=== PATIENT | male | born 1980 | race African-American/Black ===

== ENCOUNTER 2020-09-15 06:26 | Inpatient (IN) | payer MEDICAID, OTHER ==
[~2020-09-15] VITALS: Ht 185.4 cm; Wt 95.3 kg
[2020-09-15] MEDS ORDERED: LORazepam 2 MG/ML VIAL As Ordered ONE (06:30)
[2020-09-15] MEDS ORDERED: diphenhydrAMINE 50MG/ML VIAL (J1200) As Ordered ONE (06:31)
[2020-09-15] MEDS ORDERED: HALOPERIDOL 5MG/ML VIAL (J1630 PER 1) As Ordered ONE (06:31)
[2020-09-15] MEDS ORDERED: HALOPERIDOL 5MG/ML VIAL (J1630 PER 1) IM ONE (06:35)
[2020-09-15] MEDS ORDERED: diphenhydrAMINE 50MG/ML VIAL (J1200) IM ONE (06:35)
[2020-09-15] MEDS ORDERED: LORazepam 2 MG/ML VIAL IM ONE (06:35)
[2020-09-15 07:15] LABS: HEMATOCRIT 50.1 % (42.0-52.0); HEMOGLOBIN 17.4 g/dl (13.5-17.5); MEAN CORPUSCULAR HEMOGLOBIN 30.3 pg (27.0-33.0); MEAN CORPUSCULAR HGB CONC 34.7 g/dl (32.0-36.5); MEAN CORPUSCULAR VOLUME 87.1 fl (80.0-96.0); PLATELET COUNT, AUTOMATED 165 10^3/uL (150-450); RED BLOOD COUNT 5.75 10^6/uL (4.30-6.10); WHITE BLOOD COUNT 12.9 10^3/uL (4.0-10.0)
[2020-09-15 08:01] LABS: ACETAMINOPHEN LEVEL < 2.0 UG/ML (10.0-30.0); ALBUMIN 4.3 GM/DL (3.2-5.2); ALT/SGPT 272 U/L (12-78); BILIRUBIN,DIRECT 3.1 MG/DL (0.0-0.2); BILIRUBIN,TOTAL 5.4 MG/DL (0.2-1.0); BLOOD UREA NITROGEN 17 MG/DL (7-18); CALCIUM LEVEL 9.5 MG/DL (8.5-10.1); CARBON DIOXIDE LEVEL 23 MEQ/L (21-32); CHLORIDE LEVEL 96 MEQ/L (98-107); CREATININE FOR GFR 1.23 MG/DL (0.70-1.30); ETHYL ALCOHOL (ETHANOL) < 0.003 % (0.000-0.010); GLOMERULAR FILTRATION RATE > 60.0 (>60); GLUCOSE, FASTING 141 MG/DL (70-100); POTASSIUM SERUM 4.4 MEQ/L (3.5-5.1); SALICYLATE LEVEL 5.7 MG/DL (5.0-30.0); SODIUM LEVEL 132 MEQ/L (136-145); TOTAL PROTEIN 8.2 GM/DL (6.4-8.2)
[2020-09-15] MEDS ORDERED: QUET50TA3 PO (08:22)
[2020-09-15] MEDS ORDERED: SUCR1TAB56 PO (08:22)
[2020-09-15] MEDS ORDERED: GABA-282 PO (08:22)
[2020-09-15] MEDS ORDERED: QUET400T PO (08:22)
[2020-09-15] MEDS ORDERED: PANT40TA29 PO (08:22)
[2020-09-15] MEDS ORDERED: HYDR-3363 PO (08:22)
[2020-09-15] MEDS ORDERED: LITH300T2 PO (08:22)
[2020-09-15] MEDS ORDERED: METH-1165 PO (08:22)
[2020-09-15] MEDS ORDERED: NICO21DI37 PO (08:22)
[2020-09-15] MEDS ORDERED: VENL75CA47 PO (08:22)
[2020-09-15 10:36] LABS: AMPHETAMINES LEVEL URINE POSITIVE (NEGATIVE); BARBITURATES URINE NEGATIVE (NEGATIVE); BENZODIAZEPINES URINE NEGATIVE (NEGATIVE); CANNABINOIDS URINE NEGATIVE (NEGATIVE); COCAINE METABOLITE URINE NEGATIVE (NEGATIVE); METHADONE URINE NEGATIVE (NEGATIVE); OPIATES URINE NEGATIVE (NEGATIVE); PHENCYCLIDINE URINE NEGATIVE (NEGATIVE)
[2020-09-15 20:14] LABS: LITHIUM LEVEL < 0.20 MEQ/L (0.60-1.20)
[2020-09-15] MEDS ORDERED: QUEtiapine FUMARATE 200 MG TAB PO ONE (20:40)
[2020-09-15] MEDS ORDERED: LITHIUM CARBONATE 300 MG CAP PO ONE (20:40)
[2020-09-15] MEDS ORDERED: VENLAFAXINE 37.5 MG TAB PO ONE (20:40)
[2020-09-15] MEDS ORDERED: GABAPENTIN 300 MG CAP PO ONE (20:40)
[2020-09-15] MEDS ORDERED: VENLAFAXINE **XR** 75MG CAPSULE PO ONE (20:50)
[2020-09-16] MEDS: PANTOPRAZOLE 40MG TAB (PROTONIX) PO SCH (08:57)
[2020-09-16] MEDS: LITHIUM CARBONATE 300 MG CAP PO SCH ×3 (08:57→20:55)
[2020-09-16] MEDS: GABAPENTIN 300 MG CAP PO SCH ×3 (08:57→20:55)
[2020-09-16] MEDS: VENLAFAXINE **XR** 75MG CAPSULE PO SCH ×2 (08:57→20:55)
[2020-09-16] MEDS: methocarbamoL 750 MG TAB PO SCH (08:57)
[2020-09-16] MEDS: NICOTINE 21MG/24HR 1 EA TRANSDERMAL TD SCH (09:00)
[2020-09-16] MEDS ORDERED: VENLAFAXINE 37.5 MG TAB PO SCH (09:00)
[2020-09-16] MEDS: SUCRALFATE 1 GM TAB PO SCH ×3 (12:08→20:55)
[2020-09-16] MEDS ORDERED: hydrOXYzine 25 MG TAB PO STA (15:55)
[2020-09-16 16:02] LABS: RSV AMPLIFICATION NEGATIVE (NEGATIVE)
[2020-09-16] MEDS ORDERED: QUEtiapine FUMARATE 200 MG TAB PO SCH (21:00)
[2020-09-17] MEDS: LITHIUM CARBONATE 300 MG CAP PO SCH ×3 (08:07→20:25)
[2020-09-17] MEDS: VENLAFAXINE **XR** 75MG CAPSULE PO SCH ×2 (08:07→20:25)
[2020-09-17] MEDS: GABAPENTIN 300 MG CAP PO SCH ×3 (08:07→20:25)
[2020-09-17] MEDS: SUCRALFATE 1 GM TAB PO SCH ×4 (08:07→20:25)
[2020-09-17] MEDS: methocarbamoL 750 MG TAB PO SCH (08:07)
[2020-09-17] MEDS: PANTOPRAZOLE 40MG TAB (PROTONIX) PO SCH (08:07)
[2020-09-17] MEDS: NICOTINE 21MG/24HR 1 EA TRANSDERMAL TD SCH (08:10)
[2020-09-17 08:27] LABS: EOS % 0.8 % (0.0-3.0); HEMATOCRIT 48.5 % (42.0-52.0); HEMOGLOBIN 16.3 g/dl (13.5-17.5); LYMPH % 33.4 % (24.0-44.0); MEAN CORPUSCULAR HEMOGLOBIN 30.8 pg (27.0-33.0); MEAN CORPUSCULAR HGB CONC 33.6 g/dl (32.0-36.5); MEAN CORPUSCULAR VOLUME 91.5 fl (80.0-96.0); MONO % 10.9 % (2.0-8.0); NEUTROPHILS % 54.2 % (36.0-66.0); PLATELET COUNT, AUTOMATED 118 10^3/uL (150-450); WHITE BLOOD COUNT 7.5 10^3/uL (4.0-10.0)
[2020-09-17 08:28] LABS: BASO % 0.4 % (0.0-1.0); EOS # 0.1 10^3/uL (0.0-0.5); LYMPH # 2.5 10^3/uL (1.5-5.0); MONO # 0.8 10^3/uL (0.0-0.8)
--- NOTE | 2020-09-17 08:42 | REP ---
INDICATION: elev lfts COMPARISON: None. TECHNIQUE: Real time bansal scale ultrasound examination using curved array transducer. FINDINGS: Liver is normal in contour, size, and echogenicity without focal hepatic lesions identified. Pancreas is incompletely evaluated due to interposed bowel gas. The gallbladder is normal and without gallstones, wall thickening, or pericholecystic fluid. No biliary ductal dilatation is appreciated and the common bile duct measures 2.8 mm diameter. Right kidney is normal in reniform shape without hydronephrosis and measures 13.1 x 6.5 x 5.8 cm. No ascites in the visualized right upper quadrant. IMPRESSION: Normal limited right upper quadrant ultrasound <Electronically signed by Jorge Pressley > 09/17/20 [id number]
[2020-09-17] MEDS ORDERED: ISOVUE-370 76% 100ML VIAL As Ordered ONE (08:54)
[2020-09-17 09:02] LABS: ALBUMIN 3.7 GM/DL (3.2-5.2); BILIRUBIN,DIRECT 1.1 MG/DL (0.0-0.2); BILIRUBIN,TOTAL 2.7 MG/DL (0.2-1.0); TOTAL PROTEIN 7.6 GM/DL (6.4-8.2)
--- NOTE | 2020-09-17 09:21 | REP ---
INDICATION: elev lfts. COMPARISON: None TECHNIQUE: Axial contrast-enhanced images from the lung bases to the pubic symphysis using 100 cc Isovue 370 intravenous contrast material. . This CT examination was performed using the following dose reduction techniques: Automated exposure control, adjustment of mA and/or kv according to the patient's size, and the use of iterative reconstruction technique. FINDINGS: Liver demonstrates fatty infiltration without focal hepatic lesion. Spleen, pancreas, gallbladder, bilateral adrenal glands and kidneys are normal. The prior gastric bypass surgery. Small and large bowel is unremarkable. Normal terminal ileum and appendix identified in the right lower quadrant. Few scattered sigmoid diverticula noted without acute diverticulitis.. Pelvis demonstrates heterogeneous enlarged prostate gland with calcifications and cystic changes. No ascites. No free air. No intraperitoneal or retroperitoneal adenopathy. Abdominal aorta and vasculature appear normal. Musculoskeletal structures are intact and without acute osseous abnormality. IMPRESSION: 1. Hepatosteatosis. 2. Heterogeneous prostatomegaly warrants outpatient evaluation. 3. No further acute abdominopelvic pathology appreciated <Electronically signed by Jorge Pressley > 09/17/20 [id number]
[2020-09-17] MEDS ORDERED: MAALOX 30 ML SUSP *UDC PO PRN (12:45)
[2020-09-17] MEDS ORDERED: IBUPROFEN 400MG TAB PO PRN (12:45)
[2020-09-17] MEDS ORDERED: MOM 30ML SUSPENSION UDC PO PRN (12:45)
[2020-09-17] MEDS ORDERED: ACETAMINOPHEN TAB 650MG DOSE (2X325MG) PO PRN (13:10)
[2020-09-17 14:12] VITALS: BP 144/85
[2020-09-17 18:04] VITALS: BP 133/79
[2020-09-17] MEDS: hydrOXYzine 25 MG TAB PO PRN (20:26)
[2020-09-17] MEDS ORDERED: QUEtiapine FUMARATE 200 MG TAB PO SCH (21:00)
[2020-09-18 06:00] VITALS: BP_SYST 120; BP_SYST 130; BP_DIAS 74
[2020-09-18] MEDS ORDERED: INFLUENZA QUADRIVALENT PF VACCINE 0.5ML SYRINGE IM ONE (06:00)
[2020-09-18] MEDS: SUCRALFATE 1 GM TAB PO SCH ×2 (08:30→11:48)
[2020-09-18] MEDS: VENLAFAXINE **XR** 75MG CAPSULE PO SCH (08:49)
[2020-09-18] MEDS: GABAPENTIN 300 MG CAP PO SCH (08:49)
[2020-09-18] MEDS: hydrOXYzine 25 MG TAB PO PRN (08:49)
[2020-09-18] MEDS: LITHIUM CARBONATE 300 MG CAP PO SCH (08:50)
[2020-09-18] MEDS ORDERED: PANTOPRAZOLE 40MG TAB (PROTONIX) PO SCH (09:00)
[2020-09-18] MEDS ORDERED: methocarbamoL 750 MG TAB PO SCH (09:00)
[2020-09-18] MEDS ORDERED: NICOTINE 21MG/24HR 1 EA TRANSDERMAL TD SCH (09:00)
--- NOTE | 2020-09-18 12:28 | HPEPDOC ---
[facility] Medical History & Physical Date of Admission Sep 17, 2020 Date of Service: Sep 18, 2020 Attending Physician: Maria Eugenia Maria MD History and Physical Medical history and physical HISTORY OF PRESENT ILLNESS: Patient is a 39-year-old male with past medical history of bipolar disorder, anxiety, depression, PTSD who presented to [facility] emergency room on 09/17/2020 and later admitted to inpatient mental health for bipolar disorder, manic episode. On evaluation the patient admits to having thoughts of hopelessness, loneliness, decreased appetite decreased motivation decreased abilities to sleep. He admits to having regular auditory hallucinations of hearing singing, voices. Sometimes these voices telling him to do things. He can block the mouth by watching TV or dosing to music. He has been increasingly paranoid at home and states that he often times will see people walking in and out of his home, he states his people are real. He states he also sees visual hallucinations which she believes are not real including writings or objects on the wall drifting, morphine and 2 other objects. He admits to some drug use, "snorting what I thought was cocaine" but states that this sent him into a manic episode. The patient admits to being noncompliant with his home medications for his psychiatry issues and states that this is because he "hates pills". He is hemodynamically stable. He is slightly paranoid with me taking notes in the room with him and asked me multiple times what my notes were "for". He denies chest pain, fevers, chills, nausea, vomiting, shortness of breath, abdominal pain, diarrhea. REVIEW OF SYSTEMS: Neg except mentioned above PAST MEDICAL HISTORY: bipolar disorder, anxiety, depression, PTSD PAST SURGICAL HISTORY: Right knee arthroscopic surgery Tonsillectomy Hernia repair Exploratory laparotomy Gastric bypass surgery FAMILY HISTORY: Father: HTN, CAD. at 49 y/o Mother: HTN. Alive SOCIAL HISTORY: He denies drug use; however admits to snorting a "white substance" he thought was cocaine. Urine drug screen positive for amphetamines. Smokes 56 cigarettes per day for 16 years. States he used to drink alcohol daily but drinks only socially now. Lives alone Full Code. ALLERGIES: Please see below. HOME MEDICATIONS: Please see below. PHYSICAL EXAMINATION: VS: Stable CONSTITUTIONAL: No acute distress, resting comfortably, AAO x 3 EYES: PERRLA, EOM intact HENT, MOUTH: Normocephalic, atraumatic, moist mucous membranes, pierced cheeks b/l, mulitple scars on b/l eyebrows, facial tattoo NECK: SUPPLE, no JVD, no lymphadenopathy, no carotid bruit CV: Regular rate and rhythm, S1S2 normal, no murmurs/rubs/gallops RESPIRATORY: Clear to auscultation bilaterally, no rales/rhonchi/wheezes GI: BS positive in 4 quadrants, soft, nontender, nondistended, no rebound or guarding, no organomegaly : Deferred MUSCULOSKELETAL: Normal ROM. No cyanosis, clubbing, swelling, joint deformity, extremity edema INTEGUMENTARY: Multiple tattoos, Intact, no rashes, no lesions, no erythema NEUROLOGIC: Cranial Nerves II-XII are intact, no focal deficits PSYCHIATRIC: Mildly paranoid but pleasant, follows commands and answers questions appropriately LABORATORY DATA: Please see below IMAGING: RUQ US: Normal limited right upper quadrant ultrasound CT abd/pelvis: 1. Hepatosteatosis. 2. Heterogeneous prostatomegaly warrants outpatient evaluation. 3. No further acute abdominopelvic pathology appreciated ASSESSMENT: 39 y/o M admitted for Bipolar, manic episode. PLAN: Bipolar, manic episode -Plan per psychiatry team Depression / anxiety / Hx of PTSD -Plan per psychiatry team Elevated liver enzymes / elevated bilirubin poss 2/2 to drug use vs. liver disease (hx of heavy alcohol use, hepatosteatosis, r/o hepatitis with substance abuse history) -AST/ALT, bili elevated. Denied abdominal pain on exam and in the past several weeks. -Hx of gastric bypass surgery, polysubstance abuse -CT abd/pelvis and RUQ US above -F/u hepatitis panel, coags -Discussed drug cessation, will need close monitoring of CMP as o/p. Also avoid hepatotoxic meds if able Substance abuse -+ amphetamines -counselled Hyponatremia possibly 2/2 to decreased PO intake -Encourage PO intake with food/fluids -F/u labs in AM Enlarged prostate -Seen on CT abd/pelvis -No difficulty urinating per patient , no hematuria -Recommend f/u with o/p PCP after discharge DISPOSITION: At this time will sign off but follow the labs in the AM. Vital Signs Vital Signs Date Time Temp Pulse Resp B/P (MAP) Pulse Ox O2 Delivery O2 Flow Rate FiO2 09/18/20 06:00 98.7 82 18 130/74 (92) 100 Room Air Laboratory Data Microbiology Microbiology 09/17/20 Blood Culture - Preliminary, Resulted No growth after 24 hours . All specim... 09/17/20 Blood Culture - Preliminary, Resulted No growth after 24 hours . All specim... Home Medications Scheduled Gabapentin (Gabapentin) 300 Mg Capsule, 300 MG PO TID [place] Carbonate ([place] Carbonate) 300 Mg Tablet, 300 MG PO TID Methocarbamol (Methocarbamol) 750 Mg Tablet, 750 MG PO DAILY Nicotine (Nicotine Patch) 21 Mg Patch.td24, 21 MG PO DAILY Pantoprazole Sodium (Pantoprazole Sodium) 40 Mg Tablet.dr, 40 MG PO DAILY Quetiapine Fumarate (Quetiapine Fumarate) 400 Mg Tablet, 400 MG PO QHS Sucralfate (Sucralfate) 1 Gm Tablet, 1 GM PO QID Venlafaxine HCl (Venlafaxine HCl ER) 75 Mg Cap.er.24h, 75 MG PO BID Scheduled PRN Hydroxyzine HCl (Hydroxyzine HCl) 25 Mg Tablet, 25 MG PO BID PRN for ANXIETY Allergies Coded Allergies: Penicillins (Verified Allergy, Severe, 09/15/20) throat swelling ibuprofen (Verified Allergy, Intermediate, 09/15/20) A-FIB/CHADSVASC A-FIB History Current/History of A-Fib/PAF?: No Current PO Anticoag Therapy: No Age/Risk Factor Scoring CHADSVASC: CHADSVASC Response (Comments) Value Age Risk Factor Age < 65 years old 0 Gender Risk Factor Male 0 Hx of CHF No 0 Hx of HTN No 0 Hx of Stroke/TIA/or VTE No 0 Hx of Diabetes No 0 Hx of Vascular Disease No 0 Total 0 Treatment Treatment ordered: NONE Maria Eugenia Maria MD Sep 18, 2020 12:27
[2020-09-18 13:20] LABS: INR 0.95; PARTIAL THROMBOPLASTIN TIME 27.8 SECONDS (24.2-38.5); PROTHROMBIN TIME 12.9 SECONDS (12.5-14.3)
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
--- NOTE | 2020-09-18 14:27 | MHDSPDOC ---
[facility] Discharge Summary Discharge Summary DATE OF ADMISSION: Sep 17, 2020 at 12:45 DATE OF DISCHARGE: September 18, 2020 at 1414 DISCHARGE DIAGNOSES: Unspecified psychotic disorder Antisocial Personality Disorder Rule out amphetamine induced psychotic disorder Amphetamine Use Disorder Cocaine Use Disorder Per patient history of bipolar disorder Per patient, History of PTSD Substance use disorder alcohol, amphetamines Malingering REASON FOR ADMISSION: Patient is a 39 -year-old Single, Unemployed, , male, who recently admitted and discharged from this facility August 19, 2020 to August 30, 2020. On this occasion he reports that after snorting a line of what he thought was cocaine he was having visual hallucinations that there were people outside with flashlights and then he reports being homicidal towards a friend stating he had a knife to his throat. States that he had a panic attack and paranoia towards his room mate. States that he was doing what he thought was "coke" and then became paranoid. He reports at he has been dehydrated, not taking his medications, not sleeping and having auditory hallucinations feeling like what he was seeing was like a "movie - it was hazy and fuzzy." According to the police, patient had knives and was threatening to kill the police. He stated in the interview that he has not been drinking ETOH. States that people in his building were walking in and staying with him and he was letting them sleep on the floor because he "felt sorry for them" but he didn't know them. PER ED REPORT: Upon presentation to the ED, patient was very paranoid, needed much reassurance in that he was safe. Patient reportedly had 2 knives in hand. When EMS and police arrived, he was threatening to kill the police did eventually put knives down, but only after much time and coaxing from police. This auto service writer saw patient after he was medically cleared. He reports that he called for ambulance himself as he was having shortness of breath and may have been having an heart attack. Patient now states that he was probably having a panic attack. He report depression and anxiety have worsened since his discharge from inpatient on 08/30/2020. States that is noncompliant with his medications. He reports not sleeping well. He denies suicidal or homicidal ideation. When asked about auditory hallucinations or visual hallucination. He reports he has auditory hallucinations been popping up in his ear. He states he has been experiencing visual hallucinations standing random visions on the wall have been turning into letters and numbers. Patient admits to occasional alcohol use, stating last use was 3 nights ago. He denies drug use. His toxicology screen was positive for amphetamines. Patient states he doesn't remember if he used meth or not patient was chemically restrained. Not long after presenting to the ED and he has not slept. VITAL SIGNS: See below. CONSULTANTS INVOLVED: See Medical H + P by Hospitalist TREATMENT AND PROGRESS ON THE UNIT: Patient was admitted to the [facility] on a legal status he was afforded the following treatment modalities: 1) Individual Therapy 2) Group Therapy 3) Medication Management 4) Milieu Therapy 5) Safe Environment HOSPITAL COURSE: Patient was admitted to [facility] on a legal status. He was started on his home medications. Patient is well-known to this provider. He has a known history of manipulation and exploitation of peers on this unit. On his last hospitalization he was observed trying to become overly friendly with female peers in order to get housing through them. Patient has a history inflating many of his symptoms on his last hospitalization to delay his discharge. However, on this admission, he was disappointed that he was under my service and stated, "she doesn't like me." When I met with this patient this morning he denies any current paranoia. Denies any depression and suicidal or homicidal ideation and denied any psychotic symptoms. He denies that he needs further hospitalization and wishes to be discharged. It should be noted that the patient has a history of exploiting the peers on this unit, has a history of manipulation, history of substance abuse problems, lacks guilt and remorse, has a history of breaking the law, history of being deceitful, has a history of maladaptive coping that he does not address with outpatient services, and history of exaggerated or feigning illnesses. These symptoms are indicative of antisocial personality disorder and it is paramount that patient's symptoms and history of illness are corroborated as an admission to this facility with vulnerable patients can be problematic as evidenced by his attempts to seek vulnerable female patients for housing on his last admission. DISCHARGE ASSESSMENT: In today's interview, patient is alert and oriented, pts dress is appropriate. Hygiene and grooming is well-kempt. Smiles on approach and is pleasant and engaged in the interview. Denies depression and anxiety. Denies suicidal and homicidal ideation, planning or intent. Denies and is not observed with james, psychotic symptoms of delusions, bizarre thinking, obsessions, paranoia, ruminations illogical thoughts, flight of ideas or having poor insight and judgement. When I met with this patient this morning he denies any current paranoia. He denies that he needs further hospitalization and requested to be discharged. At 1545, sack repairer informed me that the patient had stated to her that he didn't know that he was being discharged and was upset that he was not notified. I want to reiterate the lengths of manipulation that this patient has demonstrated because he met with me and Dr. Krishnamurthy and he had stated that he did not want to continue his admission and that he was no longer feeling paranoid, h e had requested to be discharged in his initial interview today. MENTAL STATUS EXAMINATION ON DISCHARGE: Patient is a 39 -year-old Single, Unemployed, , male who reports that after snorting a line of what he thought was cocaine he was having visual hallucinations that there were people outside with flashlights and then he reports being homicidal towards a friend stating he had a knife to his throat. This story cannot be corroborated, according to the ED, he had reported that he was having shortness of breath and felt he was having a heart attack and when police and EMS were on scene he was paranoid and threatening to kill police. Speech: Is fluid, conversant, normal rate, tone and volume Language skills are intact Thought processes including: linear and goal oriented Thought content: denies depression and anxiety. Denies suicidal/homicidal i deation, planning or intent. Abstract reasoning, and computation: fair Description of associations: denies, none observed Description of abnormal or psychotic thoughts: denies, none observed. Judgment: fair Insight: fair Orientation: alert and oriented to person, place, time and situation Recent and remote memory: intact Attention span and concentration: good Language: expansive Fund of knowledge: average Mood: Euthymic Mood Affect: reactive MEDICATIONS ON DISCHARGE: See Medication Reconciliation. All medications were continued. PLAN/FOLLOWUP ARRANGEMENTS: [facility] The amount of time spent in the coordination of care for this patient was approximately 10 minutes. ETOH/Disorder Med Rx ETOH/DRUG DISORDER RX: Offrd @ d/c & pt refused Vital Signs/I&Os Vital Signs Date Time Temp Pulse Resp B/P (MAP) Pulse Ox O2 Delivery O2 Flow Rate FiO2 09/18/20 06:00 98.7 82 18 130/74 (92) 100 Room Air Laboratory Data Labs 24H Laboratory Tests 2 09/18/20 12:44: Prothrombin Time 12.9, Prothromb Time International Ratio 0.95, Activated Partial Thromboplast Time 27.8 Microbiology Microbiology 09/17/20 Blood Culture - Preliminary, Resulted No growth after 24 hours . All specim... 09/17/20 Blood Culture - Preliminary, Resulted No growth after 24 hours . All specim... Medications Scheduled Gabapentin (Gabapentin) 300 Mg Capsule, 300 MG PO TID, (Reported) [place] Carbonate ([place] Carbonate) 300 Mg Tablet, 300 MG PO TID, (Reported) Methocarbamol (Methocarbamol) 750 Mg Tablet, 750 MG PO DAILY, (Reported) Nicotine (Nicotine Patch) 21 Mg Patch.td24, 21 MG PO DAILY, (Reported) Pantoprazole Sodium (Pantoprazole Sodium) 40 Mg Tablet.dr, 40 MG PO DAILY, (Reported) Quetiapine Fumarate (Quetiapine Fumarate) 400 Mg Tablet, 400 MG PO QHS, (Reported) Sucralfate (Sucralfate) 1 Gm Tablet, 1 GM PO QID, (Reported) Venlafaxine HCl (Venlafaxine HCl ER) 75 Mg Cap.er.24h, 75 MG PO BID, (Reported) Scheduled PRN Hydroxyzine HCl (Hydroxyzine HCl) 25 Mg Tablet, 25 MG PO BID PRN for ANXIETY, (Reported) Allergies Coded Allergies: Penicillins (Verified Allergy, Severe, 09/15/20) throat swelling ibuprofen (Verified Allergy, Intermediate, 09/15/20) LISA REDMAN SIDE SEAM TENDER Sep 18, 2020 14:15
[2020-09-18 14:29] LABS: HEPATITIS A ANTIBODY IGM NEGATIVE (NEGATIVE); HEPATITIS B CORE ANTIBODY IGM NEGATIVE (NEGATIVE); HEPATITIS B SURFACE ANTIGEN NEGATIVE (NEGATIVE)
== END 2020-09-18 14:46 | disposition home or self-care (01) | DRG 774 ==
LOC: M ED 06:26 → EDBD 06:26 → M ED INP 09-17 12:45 → M PSY 09-17 14:11
PROVIDERS: ADMIT Psychiatry & Neurology Psychiatry; ATTEND Psychiatry & Neurology Psychiatry
DX: F15.159 Other stimulant abuse with stimulant-induced psychotic disorder, unspecified (principal); E87.1 Hypo-osmolality and hyponatremia; F14.10 Cocaine abuse, uncomplicated; F10.10 Alcohol abuse, uncomplicated; N40.0 Benign prostatic hyperplasia without lower urinary tract symptoms; R74.8 Abnormal levels of other serum enzymes; F60.2 Antisocial personality disorder; F17.210 Nicotine dependence, cigarettes, uncomplicated; Z88.0 Allergy status to penicillin; Z88.6 Allergy status to analgesic agent; Z79.899 Other long term (current) drug therapy; Z98.84 Bariatric surgery status; Z76.5 Malingerer [conscious simulation]